=== PATIENT | female | born 1960 | race Caucasian/White ===

== ENCOUNTER → 2023-10-07 13:11 | Outpatient (REF) | payer BC, SELFPAY | LOC: DHCBC HW 13:11 | PROVIDERS: ATTENDING PHYSICIAN Internal Medicine Cardiovascular Disease; FAMILY PHYSICIAN Physician Assistant Medical | DX: Z95.2 Presence of prosthetic heart valve (principal) | CPT/HCPCS: 93306 ==

== ENCOUNTER → 2025-04-27 13:02 | Outpatient (REF) | payer OTHER, SELFPAY ==
--- NOTE | 2025-04-27 14:06 | CARDSERVDEF ---
Echocardiogram with Definity completed after protocol screening completed. Allergies verified.
Patent IV site: _Right antecubital 22 G PC____
IV site flushed with 0.9% NaCl pre and post administration.
Diluted bolus method utilized to enhance visualization of ventricular bhatia.
Total volume given: __3__ mL
Patient tolerated all procedures well without complications.
Heplock D/C ed at 1405, site clear, no redness, no edema. Pressure held, 2x2 applied and taped. No change in status.
[2025-04-27 16:18] LABS: Hematocrit 44.0 % (37.0-47.0); Hemoglobin 14.5 g/dL (12.0-16.0); Mean Corp Hgb Conc. 33.0 g/dL (33.0-37.0); Mean Corpuscular Volume 93.2 fL (81.0-99.0); Nucleated Red Blood Cells % 0 %; Platelet Count 267 10^3/uL (130-400); Red Cell Dist. Width 13.7 % (11.5-14.5)
[2025-04-27 17:02] LABS: Ferritin 51.4 ng/ml (11.1-264.0)
[2025-04-28 12:20] LABS: Glycohemoglobin (HgbA1c) 5.8 % (4.0-5.6)
== END ==
LOC: REG 13:02
PROVIDERS: ATTENDING PHYSICIAN Nurse Practitioner Gerontology; FAMILY PHYSICIAN Physician Assistant Medical
DX: R06.02 Shortness of breath (principal); Z95.2 Presence of prosthetic heart valve; Z01.84 Encounter for antibody response examination; Z00.01 Encounter for general adult medical examination with abnormal findings; R73.01 Impaired fasting glucose; H81.8X9 Other disorders of vestibular function, unspecified ear; E66.01 Morbid (severe) obesity due to excess calories
CPT/HCPCS: 36415; 82728; 83036; 84443; 85025; 86765; 93307; Q9957

== ENCOUNTER → 2025-05-11 13:27 | Outpatient (REF) | payer OTHER, SELFPAY ==
[2025-05-11 16:41] LABS: ALT (SGPT) 17 U/L (0-35); AST (SGOT) 19 U/L (14-36); Albumin 4.2 g/dl (3.5-5.0); Alkaline Phosphatase 68 U/L (38-126); Blood Urea Nitrogen 11 mg/dl (7-17); Calcium 9.3 mg/dl (8.4-10.2); Carbon Dioxide 28 mmol/L (22-30); Chloride 104 mmol/L (98-107); Glucose 101 mg/dl (70-99); HDL Cholesterol 74 mg/dl; LDL Cholesterol, Calculated 76 mg/dl; Potassium 4.2 mmol/L (3.5-5.1); Sodium 137 mmol/L (135-145); Total Protein 7.3 g/dl (6.3-8.2); Very Low Density Lipoprotein 23 mg/dl (0-30); eGFR > 60.00
== END ==
LOC: REG 13:27
PROVIDERS: ATTENDING PHYSICIAN Physician Assistant Medical; OTHER PHYSICIAN Nurse Practitioner Gerontology
DX: Z00.00 Encounter for general adult medical examination without abnormal findings (principal); R06.02 Shortness of breath; G47.33 Obstructive sleep apnea (adult) (pediatric); R73.01 Impaired fasting glucose; H81.8X9 Other disorders of vestibular function, unspecified ear; E66.01 Morbid (severe) obesity due to excess calories
CPT/HCPCS: 36415; 80053; 80061